=== PATIENT | female | born 1995 | race Caucasian/White ===

== ENCOUNTER 2017-02-12 06:46 | Emergency (ER) | payer OTHER ==
[2017-02-12 06:59] VITALS: BP 134/85; PULSE 73; RESP 16; TEMP 98.2; O2SAT 96
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
== END 2017-02-12 07:47 | disposition home or self-care (01) ==
DX: Z77.21 Contact with and (suspected) exposure to potentially hazardous body fluids (principal)